=== PATIENT | male | born 1955 | race Caucasian/White ===

== ENCOUNTER 2019-09-04 06:46 | Day surgery (SDC) | payer BC ==
[~2019-09-04 06:46] MED LIST: Lactated Ringers 1,000 ML IV SCH; Sodium Chloride 0.9% 10 ML Syringe FLUSH PRN
[2019-09-04] MEDS ORDERED: fentaNYL 100 MCG/2 ML SDV IV ONE (06:47)
[2019-09-04] MEDS ORDERED: Midazolam 1 MG/ML 2 ML SDV IV ONE (06:47)
[2019-09-04] MEDS ORDERED: Ondansetron 4 MG/2 ML SDV IVPUSH ONE (06:47)
[2019-09-04] MEDS ORDERED: Ketorolac 30 MG/ML SDV IVPUSH ONE (06:47)
[2019-09-04] MEDS ORDERED: Rocuronium 100 MG/10 ML MDV IV ONE (06:47)
[2019-09-04] MEDS ORDERED: Lactated Ringers 1,000 ML IV ONE (06:47)
[2019-09-04] MEDS ORDERED: Glycopyrrolate 0.2 MG/ML 5 ML MDV IV ONE (06:47)
[2019-09-04] MEDS ORDERED: Propofol 200 MG/20 ML SDV IV ONE (06:47)
[2019-09-04] MEDS ORDERED: ceFAZolin 2 GM in Premix Bag 1 BAG IV ONE (08:00)
[2019-09-04] MEDS ORDERED: Bupivacaine 0.5% 30 ML SDV INJECT ONE (08:32)
[2019-09-04] MEDS ORDERED: Lidocaine 1% with EPINEPHrine 1:100,000 20 ML MDV INJECT ONE (08:33)
[2019-09-04] MEDS ORDERED: Acetaminophen/HYDROcodone 325-5 MG Tab PO PRN (08:59)
--- NOTE | 2019-09-04 08:59 | PCM.OPNOTE ---
- General Post-Op/Procedure Note Date of Surgery/Procedure: 09/04/19 Operative Procedure(s): lih repair with mesh Findings: indirect hernia left Pre Op Diagnosis: inguinal hernia without obstruction or gangrene left Post-Op Diagnosis: Same Anesthesia Technique: General LMA, Local (8 ml 1 % lido with epi/0.5% buvipicaine) Primary Surgeon: Jr Hong Anesthesia Provider: Blake Smith Pathology: none Complications: None Condition: Good Free Text/Narrative:: see dictation
--- NOTE | 2019-09-04 11:36 | OR ---
DATE OF OPERATION: 09/04/2019 SURGEON: Jr Hong MD PROCEDURE PERFORMED: Left inguinal hernia repair. PREOPERATIVE DIAGNOSIS: Left inguinal hernia without obstruction or gangrene. POSTOPERATIVE DIAGNOSIS: Left inguinal hernia without obstruction or gangrene. INDICATIONS FOR PROCEDURE: This is a 64-year-old white male, who presents with a reducible left inguinal hernia. He was offered and accepted repair. INTRAOPERATIVE FINDINGS: The patient had an indirect hernia. This was repaired with a Phasix large plug and patch, lot number [id number], reference #[id number], expiration date 02/18/2021. An OptiFix was used to adhere the mesh to the floor of the inguinal canal, and this reference number was [id number], lot number [id number], expiration date 03/21/2021. A total of 8 mL of our local was used. DESCRIPTION OF OPERATION: After an excellent LMA anesthetic was administered, the patient was prepped and draped in the usual sterile manner. Our local mixture was used to raise a skin wheal approximately 1 cm medial to the anterior- superior iliac spine, and a deep injection was made to get the ilioinguinal and genitofemoral nerves. The planned incision site was then infiltrated with more local, and an incision was made with a #15 scalpel blade. The underlying subcu fat was divided using electrocautery. Superficial inferior epigastric vessel was very small and was easily divided and bleeding controlled with electrocautery. Aponeurosis of the external oblique was exposed, more local was injected underneath the aponeurosis. A chikis was made in the aponeurosis and carried out through the external ring. The two leaves of the aponeurosis were then retracted free, and the ilioinguinal nerve was identified and retracted out of the operative field. The cord was skeletonized and controlled with a 1-inch [place] drain. The cord was then skeletonized, and an indirect hernia was reduced. The large mesh plug was then inserted into the defect and tacked into position with 2-0 Vicryl. The overlay mesh was placed on the floor of the inguinal canal with a vertical keyhole cut out for the internal ring, tacked into position inferiorly using a running 2-0 Vicryl, and the keyhole was closed with a running 2-0 Vicryl. The OptiFix was then used to fix the mesh to the floor of the canal. The ilioinguinal nerve was returned to normal anatomic position. The area was irrigated. The aponeurosis of the external oblique was closed with a running 3-0 Vicryl. Dulce's was closed with a running 3-0 Vicryl, and 4-0 Vicryl was used to close the skin. Needle, sponge, and instrument counts were reported as correct. The patient was taken to recovery room in good condition, having tolerated the procedure well. /[id number] /MODL
== END 2019-09-04 11:05 | disposition home or self-care (01) ==
LOC: FB.SDS 06:46
PROVIDERS: ATTEND Surgery
DX: K40.90 Unilateral inguinal hernia, without obstruction or gangrene, not specified as recurrent (principal); F41.9 Anxiety disorder, unspecified; K21.9 Gastro-esophageal reflux disease without esophagitis; Z79.899 Other long term (current) drug therapy; Z88.1 Allergy status to other antibiotic agents; Z87.891 Personal history of nicotine dependence; Z79.82 Long term (current) use of aspirin
CPT/HCPCS: 00830-QZ; 94150; C1713; C1781; J0690; J1885; J2250; J2405; J2704; J3010; J3490; J7120

== ENCOUNTER 2024-01-13 07:06 | Day surgery (SDC) | payer MEDICARE, BC ==
[2024-01-13] MEDS ORDERED: Propofol 200 MG/20 ML SDV IV ONE (07:07)
[2024-01-13] MEDS ORDERED: Lidocaine 2% 100 MG/5 ML Syringe IVPUSH ONE (07:07)
[2024-01-13] MEDS ORDERED: Sodium Chloride 0.9% 10 ML Syringe FLUSH PRN (07:15)
[2024-01-13] MEDS: Lactated Ringers 1,000 ML IV SCH (08:00)
[2024-01-13] MEDS: Simethicone Drops 40 MG/0.6 ML 30 ML Bottle ONE (08:20)
== END 2024-01-13 09:48 | disposition home or self-care (01) ==
LOC: FB.SDS 07:06
PROVIDERS: ATTEND Surgery
DX: Z12.11 Encounter for screening for malignant neoplasm of colon (principal); D12.6 Benign neoplasm of colon, unspecified; Z80.0 Family history of malignant neoplasm of digestive organs; E78.49 Other hyperlipidemia; Z87.891 Personal history of nicotine dependence; Z79.899 Other long term (current) drug therapy
CPT/HCPCS: 00811; 88305; A9270-GY; J2704; J7120